=== PATIENT | female | born 1955 | race Caucasian/White ===

== ENCOUNTER 2021-11-20 08:14 | Outpatient (CLI) | payer MEDICARE, OTHER | END 2021-11-20 08:15 | disposition home or self-care (01) | LOC: CSHWCC 08:14 | PROVIDERS: ATTEND Nurse Practitioner Family | DX: S31.829D Unspecified open wound of left buttock, subsequent encounter (principal); S31.819D Unspecified open wound of right buttock, subsequent encounter | CPT/HCPCS: 97139; G0463; 99204 ==

== ENCOUNTER 2021-12-04 10:09 | Outpatient (CLI) | payer MEDICARE, OTHER | END 2021-12-04 10:10 | disposition home or self-care (01) | LOC: CSHWCC 10:09 | PROVIDERS: ATTEND Nurse Practitioner Family | DX: S31.829D Unspecified open wound of left buttock, subsequent encounter (principal); S31.819D Unspecified open wound of right buttock, subsequent encounter ==

== ENCOUNTER 2021-12-10 12:51 | Outpatient (CLI) | payer MEDICARE, OTHER | END 2021-12-10 12:52 | disposition home or self-care (01) | LOC: CSHWCC 12:51 | PROVIDERS: ATTEND Nurse Practitioner Family | DX: L59.8 Other specified disorders of the skin and subcutaneous tissue related to radiation (principal) ==

== ENCOUNTER 2022-01-07 13:56 | Outpatient (CLI) | payer MEDICARE, OTHER | END 2022-01-07 13:57 | disposition home or self-care (01) | LOC: CSHWCC 13:56 | PROVIDERS: ATTEND Nurse Practitioner Family | DX: L59.8 Other specified disorders of the skin and subcutaneous tissue related to radiation (principal) | CPT/HCPCS: G0277 ==

== ENCOUNTER 2022-01-08 12:50 | Outpatient (CLI) | payer MEDICARE, OTHER | END 2022-01-08 12:51 | disposition home or self-care (01) | LOC: CSHWCC 12:50 | PROVIDERS: ATTEND Nurse Practitioner Family | DX: L59.8 Other specified disorders of the skin and subcutaneous tissue related to radiation (principal) | CPT/HCPCS: G0277 ==

== ENCOUNTER 2022-01-09 12:56 | Outpatient (CLI) | payer MEDICARE, OTHER | END 2022-01-09 12:57 | disposition home or self-care (01) | LOC: CSHWCC 12:56 | PROVIDERS: ATTEND Nurse Practitioner Family | DX: S31.829D Unspecified open wound of left buttock, subsequent encounter (principal); S31.819D Unspecified open wound of right buttock, subsequent encounter; L59.8 Other specified disorders of the skin and subcutaneous tissue related to radiation | CPT/HCPCS: 99213; G0277; G0463 ==

== ENCOUNTER 2022-01-14 10:00 | Outpatient (CLI) | payer MEDICARE, OTHER | END 2022-01-14 10:01 | disposition home or self-care (01) | LOC: CSHWCC 10:00 | PROVIDERS: ATTEND Nurse Practitioner Family | DX: L59.8 Other specified disorders of the skin and subcutaneous tissue related to radiation (principal) | CPT/HCPCS: G0277 ==

== ENCOUNTER 2022-01-23 12:59 | Outpatient (CLI) | payer MEDICARE, OTHER | END 2022-01-23 13:00 | disposition home or self-care (01) | LOC: CSHWCC 12:59 | PROVIDERS: ATTEND Nurse Practitioner Family | DX: L59.8 Other specified disorders of the skin and subcutaneous tissue related to radiation (principal) | CPT/HCPCS: 97139; G0277 ==

== ENCOUNTER 2022-01-28 15:31 | Outpatient (CLI) | payer MEDICARE, OTHER | END 2022-01-28 15:32 | disposition home or self-care (01) | LOC: CSHWCC 15:31 | PROVIDERS: ATTEND Nurse Practitioner Family | DX: L59.8 Other specified disorders of the skin and subcutaneous tissue related to radiation (principal) | CPT/HCPCS: 97139 ×2; G0277 ×2 ==

== ENCOUNTER 2022-01-29 13:41 | Outpatient (CLI) | payer MEDICARE, OTHER | END 2022-01-29 13:42 | disposition home or self-care (01) | LOC: CSHWCC 13:41 | PROVIDERS: ATTEND Nurse Practitioner Family | DX: L59.8 Other specified disorders of the skin and subcutaneous tissue related to radiation (principal) | CPT/HCPCS: G0277 ==

== ENCOUNTER 2022-01-30 12:47 | Outpatient (CLI) | payer MEDICARE, OTHER | END 2022-01-30 12:48 | disposition home or self-care (01) | LOC: CSHWCC 12:47 | PROVIDERS: ATTEND Nurse Practitioner Family | DX: L59.8 Other specified disorders of the skin and subcutaneous tissue related to radiation (principal) | CPT/HCPCS: 97139; G0277; G0463; 99213 ==

== ENCOUNTER 2022-01-31 13:02 | Outpatient (CLI) | payer MEDICARE, OTHER | END 2022-01-31 13:03 | disposition home or self-care (01) | LOC: CSHWCC 13:02 | PROVIDERS: ATTEND Nurse Practitioner Family | DX: L59.8 Other specified disorders of the skin and subcutaneous tissue related to radiation (principal) | CPT/HCPCS: G0277 ==

== ENCOUNTER 2022-02-04 13:40 | Outpatient (CLI) | payer MEDICARE, OTHER | END 2022-02-04 13:41 | disposition home or self-care (01) | LOC: CSHWCC 13:40 | PROVIDERS: ATTEND Nurse Practitioner Family | DX: L59.8 Other specified disorders of the skin and subcutaneous tissue related to radiation (principal) | CPT/HCPCS: G0277 ==

== ENCOUNTER 2022-02-05 11:58 | Outpatient (CLI) | payer MEDICARE, OTHER | END 2022-02-05 11:59 | disposition home or self-care (01) | LOC: CSHWCC 11:58 | PROVIDERS: ATTEND Nurse Practitioner Family | DX: L59.8 Other specified disorders of the skin and subcutaneous tissue related to radiation (principal) | CPT/HCPCS: 97139; G0277 ==

== ENCOUNTER 2022-02-06 16:36 | Outpatient (CLI) | payer MEDICARE, OTHER | END 2022-02-06 16:37 | disposition home or self-care (01) | LOC: CSHWCC 16:36 | PROVIDERS: ATTEND Nurse Practitioner Family | DX: L59.8 Other specified disorders of the skin and subcutaneous tissue related to radiation (principal) | CPT/HCPCS: G0277 ==

== ENCOUNTER 2022-02-07 13:01 | Outpatient (CLI) | payer MEDICARE, OTHER | END 2022-02-07 13:02 | disposition home or self-care (01) | LOC: CSHWCC 13:01 | PROVIDERS: ATTEND Nurse Practitioner Family | DX: L59.8 Other specified disorders of the skin and subcutaneous tissue related to radiation (principal) ==

== ENCOUNTER 2022-02-08 13:09 | Outpatient (CLI) | payer MEDICARE, OTHER | END 2022-02-08 13:10 | disposition home or self-care (01) | LOC: CSHWCC 13:09 | PROVIDERS: ATTEND Nurse Practitioner Family | DX: L59.8 Other specified disorders of the skin and subcutaneous tissue related to radiation (principal) | CPT/HCPCS: 97139; G0277 ==

== ENCOUNTER 2022-02-11 11:48 | Outpatient (CLI) | payer MEDICARE, OTHER | END 2022-02-11 11:49 | disposition home or self-care (01) | LOC: CSHWCC 11:48 | PROVIDERS: ATTEND Nurse Practitioner Family | DX: L59.8 Other specified disorders of the skin and subcutaneous tissue related to radiation (principal) | CPT/HCPCS: 97139; G0277 ==

== ENCOUNTER 2022-02-12 13:00 | Outpatient (CLI) | payer MEDICARE, OTHER | END 2022-02-12 13:01 | disposition home or self-care (01) | LOC: CSHWCC 13:00 | PROVIDERS: ATTEND Nurse Practitioner Family | DX: L59.8 Other specified disorders of the skin and subcutaneous tissue related to radiation (principal) | CPT/HCPCS: 97139; G0277 ==

== ENCOUNTER 2022-02-14 12:42 | Outpatient (CLI) | payer MEDICARE, OTHER | END 2022-02-14 12:43 | disposition home or self-care (01) | LOC: CSHWCC 12:42 | PROVIDERS: ATTEND Nurse Practitioner Family | DX: L59.8 Other specified disorders of the skin and subcutaneous tissue related to radiation (principal) | CPT/HCPCS: 97139; G0277 ==

== ENCOUNTER 2022-02-15 11:15 | Outpatient (CLI) | payer MEDICARE, OTHER | END 2022-02-15 11:16 | disposition home or self-care (01) | LOC: CSHWCC 11:15 | PROVIDERS: ATTEND Nurse Practitioner Family | DX: L59.8 Other specified disorders of the skin and subcutaneous tissue related to radiation (principal) | CPT/HCPCS: 97139; G0277 ==

== ENCOUNTER 2022-02-19 10:04 | Outpatient (CLI) | payer MEDICARE, OTHER | END 2022-02-19 10:05 | disposition home or self-care (01) | LOC: CSHWCC 10:04 | PROVIDERS: ATTEND Nurse Practitioner Family | DX: L59.8 Other specified disorders of the skin and subcutaneous tissue related to radiation (principal) | CPT/HCPCS: G0277 ==

== ENCOUNTER 2022-02-20 15:16 | Outpatient (CLI) | payer MEDICARE, OTHER | END 2022-02-20 15:17 | disposition home or self-care (01) | LOC: CSHWCC 15:16 | PROVIDERS: ATTEND Nurse Practitioner Family | DX: L59.8 Other specified disorders of the skin and subcutaneous tissue related to radiation (principal) | CPT/HCPCS: 97139; G0277 ==

== ENCOUNTER 2022-02-21 08:08 | Outpatient (CLI) | payer MEDICARE, OTHER | END 2022-02-21 08:09 | disposition home or self-care (01) | LOC: CSHWCC 08:08 | PROVIDERS: ATTEND Nurse Practitioner Family | DX: S31.819D Unspecified open wound of right buttock, subsequent encounter (principal); L59.8 Other specified disorders of the skin and subcutaneous tissue related to radiation ==

== ENCOUNTER 2022-02-25 08:16 | Outpatient (CLI) | payer MEDICARE, OTHER | END 2022-02-25 08:17 | disposition home or self-care (01) | LOC: CSHWCC 08:16 | PROVIDERS: ATTEND Nurse Practitioner Family | DX: S31.819D Unspecified open wound of right buttock, subsequent encounter (principal); L59.8 Other specified disorders of the skin and subcutaneous tissue related to radiation | CPT/HCPCS: G0277 ==

== ENCOUNTER 2022-02-26 15:59 | Outpatient (CLI) | payer MEDICARE, OTHER | END 2022-02-26 16:00 | disposition home or self-care (01) | LOC: CSHWCC 15:59 | PROVIDERS: ATTEND Nurse Practitioner Family | DX: L59.8 Other specified disorders of the skin and subcutaneous tissue related to radiation (principal) | CPT/HCPCS: 97139; G0277 ==

== ENCOUNTER 2022-02-28 15:13 | Outpatient (CLI) | payer MEDICARE, OTHER | END 2022-02-28 15:14 | disposition home or self-care (01) | LOC: CSHWCC 15:13 | PROVIDERS: ATTEND Nurse Practitioner Family | DX: L59.8 Other specified disorders of the skin and subcutaneous tissue related to radiation (principal) | CPT/HCPCS: 99213; G0277; G0463 ==

== ENCOUNTER 2022-03-11 09:36 | Outpatient (CLI) | payer MEDICARE, OTHER | END 2022-03-11 09:37 | disposition home or self-care (01) | LOC: CSHWCC 09:36 | PROVIDERS: ATTEND Nurse Practitioner Family | DX: L59.8 Other specified disorders of the skin and subcutaneous tissue related to radiation (principal) | CPT/HCPCS: 97139; G0277 ==

== ENCOUNTER 2022-03-12 15:09 | Outpatient (CLI) | payer MEDICARE, OTHER | END 2022-03-12 15:10 | disposition home or self-care (01) | LOC: CSHWCC 15:09 | PROVIDERS: ATTEND Nurse Practitioner Family | DX: L59.8 Other specified disorders of the skin and subcutaneous tissue related to radiation (principal); S31.819D Unspecified open wound of right buttock, subsequent encounter | CPT/HCPCS: 97139; G0277 ==

== ENCOUNTER 2022-03-13 12:02 | Outpatient (CLI) | payer MEDICARE, OTHER | END 2022-03-13 12:03 | disposition home or self-care (01) | LOC: CSHWCC 12:02 | PROVIDERS: ATTEND Nurse Practitioner Family | DX: S31.819D Unspecified open wound of right buttock, subsequent encounter (principal); L59.8 Other specified disorders of the skin and subcutaneous tissue related to radiation | CPT/HCPCS: 97139; G0277 ==

== ENCOUNTER 2022-03-14 14:13 | Outpatient (CLI) | payer MEDICARE, OTHER | END 2022-03-14 14:14 | disposition home or self-care (01) | LOC: CSHWCC 14:13 | PROVIDERS: ATTEND Nurse Practitioner Family | DX: S31.819D Unspecified open wound of right buttock, subsequent encounter (principal); L59.8 Other specified disorders of the skin and subcutaneous tissue related to radiation | CPT/HCPCS: G0277 ==

== ENCOUNTER 2022-03-18 08:11 | Outpatient (CLI) | payer MEDICARE, OTHER | END 2022-03-18 08:12 | disposition home or self-care (01) | LOC: CSHWCC 08:11 | PROVIDERS: ATTEND Nurse Practitioner Family | DX: L59.8 Other specified disorders of the skin and subcutaneous tissue related to radiation (principal) | CPT/HCPCS: G0277 ==

== ENCOUNTER 2022-03-19 11:42 | Outpatient (CLI) | payer MEDICARE, OTHER | END 2022-03-19 11:43 | disposition home or self-care (01) | LOC: CSHWCC 11:42 | PROVIDERS: ATTEND Nurse Practitioner Family | DX: S31.819D Unspecified open wound of right buttock, subsequent encounter (principal); L59.8 Other specified disorders of the skin and subcutaneous tissue related to radiation | CPT/HCPCS: 97139; G0277 ==

== ENCOUNTER 2022-03-20 14:04 | Outpatient (CLI) | payer MEDICARE, OTHER | END 2022-03-20 14:05 | disposition home or self-care (01) | LOC: CSHWCC 14:04 | PROVIDERS: ATTEND Nurse Practitioner Family | DX: S31.819D Unspecified open wound of right buttock, subsequent encounter (principal); L59.8 Other specified disorders of the skin and subcutaneous tissue related to radiation | CPT/HCPCS: 97139; G0277 ==

== ENCOUNTER 2022-03-22 10:17 | Outpatient (CLI) | payer MEDICARE, OTHER | END 2022-03-22 10:18 | disposition home or self-care (01) | LOC: CSHWCC 10:17 | PROVIDERS: ATTEND Nurse Practitioner Family | DX: L59.8 Other specified disorders of the skin and subcutaneous tissue related to radiation (principal); S31.819D Unspecified open wound of right buttock, subsequent encounter | CPT/HCPCS: 97139; G0277 ==

== ENCOUNTER 2022-03-25 11:00 | Outpatient (CLI) | payer MEDICARE, OTHER | END 2022-03-25 11:01 | disposition home or self-care (01) | LOC: CSHWCC 11:00 | PROVIDERS: ATTEND Nurse Practitioner Family | DX: S31.819D Unspecified open wound of right buttock, subsequent encounter (principal); L59.8 Other specified disorders of the skin and subcutaneous tissue related to radiation | CPT/HCPCS: G0277 ==

== ENCOUNTER 2022-03-26 10:47 | Outpatient (CLI) | payer MEDICARE, OTHER | END 2022-03-26 10:48 | disposition home or self-care (01) | LOC: CSHWCC 10:47 | PROVIDERS: ATTEND Nurse Practitioner Family | DX: S31.819D Unspecified open wound of right buttock, subsequent encounter (principal); L59.8 Other specified disorders of the skin and subcutaneous tissue related to radiation | CPT/HCPCS: 97139; G0277 ==

== ENCOUNTER 2022-03-27 12:49 | Outpatient (CLI) | payer MEDICARE, OTHER | END 2022-03-27 12:50 | disposition home or self-care (01) | LOC: CSHWCC 12:49 | PROVIDERS: ATTEND Nurse Practitioner Family | DX: S31.819D Unspecified open wound of right buttock, subsequent encounter (principal); L59.8 Other specified disorders of the skin and subcutaneous tissue related to radiation ==

== ENCOUNTER 2022-03-28 15:05 | Outpatient (CLI) | payer MEDICARE, OTHER | END 2022-03-28 15:06 | disposition home or self-care (01) | LOC: CSHWCC 15:05 | PROVIDERS: ATTEND Nurse Practitioner Family | DX: S31.819D Unspecified open wound of right buttock, subsequent encounter (principal); L59.8 Other specified disorders of the skin and subcutaneous tissue related to radiation ==

== ENCOUNTER 2022-03-29 11:12 | Outpatient (CLI) | payer MEDICARE, OTHER | END 2022-03-29 11:13 | disposition home or self-care (01) | LOC: CSHWCC 11:12 | PROVIDERS: ATTEND Nurse Practitioner Family | DX: S31.819D Unspecified open wound of right buttock, subsequent encounter (principal); L59.8 Other specified disorders of the skin and subcutaneous tissue related to radiation | CPT/HCPCS: G0277 ==

== ENCOUNTER 2022-04-02 13:06 | Outpatient (CLI) | payer MEDICARE, OTHER | END 2022-04-02 13:07 | disposition home or self-care (01) | LOC: CSHWCC 13:06 | PROVIDERS: ATTEND Nurse Practitioner Family | DX: S31.829D Unspecified open wound of left buttock, subsequent encounter (principal); S31.819D Unspecified open wound of right buttock, subsequent encounter; L59.8 Other specified disorders of the skin and subcutaneous tissue related to radiation | CPT/HCPCS: G0277 ==

== ENCOUNTER 2022-04-03 11:05 | Outpatient (CLI) | payer MEDICARE, OTHER | END 2022-04-03 11:06 | disposition home or self-care (01) | LOC: CSHWCC 11:05 | PROVIDERS: ATTEND Nurse Practitioner Family | DX: S31.819D Unspecified open wound of right buttock, subsequent encounter (principal); L59.8 Other specified disorders of the skin and subcutaneous tissue related to radiation | CPT/HCPCS: G0277 ==

== ENCOUNTER 2022-04-04 15:16 | Outpatient (CLI) | payer MEDICARE, OTHER | END 2022-04-04 15:17 | disposition home or self-care (01) | LOC: CSHWCC 15:16 | PROVIDERS: ATTEND Nurse Practitioner Family | DX: S31.819D Unspecified open wound of right buttock, subsequent encounter (principal); L59.8 Other specified disorders of the skin and subcutaneous tissue related to radiation | CPT/HCPCS: 97139; G0277 ==

== ENCOUNTER 2022-04-09 12:55 | Outpatient (CLI) | payer MEDICARE, OTHER | END 2022-04-09 12:56 | disposition home or self-care (01) | LOC: CSHWCC 12:55 | PROVIDERS: ATTEND Nurse Practitioner Family | DX: L59.8 Other specified disorders of the skin and subcutaneous tissue related to radiation (principal) ==

== ENCOUNTER 2022-04-22 14:06 | Outpatient (CLI) | payer MEDICARE, OTHER | END 2022-04-22 14:07 | disposition home or self-care (01) | LOC: CSHWCC 14:06 | PROVIDERS: ATTEND Nurse Practitioner Family | DX: L59.8 Other specified disorders of the skin and subcutaneous tissue related to radiation (principal) ==

== ENCOUNTER 2022-04-23 14:45 | Outpatient (CLI) | payer MEDICARE, OTHER | END 2022-04-23 14:46 | disposition home or self-care (01) | LOC: CSHWCC 14:45 | PROVIDERS: ATTEND Nurse Practitioner Family | DX: S31.819D Unspecified open wound of right buttock, subsequent encounter (principal); L59.8 Other specified disorders of the skin and subcutaneous tissue related to radiation | CPT/HCPCS: 97139; G0277 ==

== ENCOUNTER 2022-04-24 11:18 | Outpatient (CLI) | payer MEDICARE, OTHER | END 2022-04-24 11:19 | disposition home or self-care (01) | LOC: CSHWCC 11:18 | PROVIDERS: ATTEND Nurse Practitioner Family | DX: S31.819D Unspecified open wound of right buttock, subsequent encounter (principal); L59.8 Other specified disorders of the skin and subcutaneous tissue related to radiation ==

== ENCOUNTER 2022-04-25 10:48 | Outpatient (CLI) | payer MEDICARE, OTHER | END 2022-04-25 10:49 | disposition home or self-care (01) | LOC: CSHWCC 10:48 | PROVIDERS: ATTEND Nurse Practitioner Family | DX: S31.829D Unspecified open wound of left buttock, subsequent encounter (principal) | CPT/HCPCS: 97139; G0277; G0463; 99212 ==

== ENCOUNTER 2022-05-01 11:10 | Outpatient (CLI) | payer MEDICARE, OTHER | END 2022-05-01 11:11 | disposition home or self-care (01) | LOC: CSHWCC 11:10 | PROVIDERS: ATTEND Nurse Practitioner Family | DX: S31.819D Unspecified open wound of right buttock, subsequent encounter (principal); L59.8 Other specified disorders of the skin and subcutaneous tissue related to radiation | CPT/HCPCS: 97139; G0277 ==

== ENCOUNTER 2022-05-02 13:59 | Outpatient (CLI) | payer MEDICARE, OTHER | END 2022-05-02 14:00 | disposition home or self-care (01) | LOC: CSHWCC 13:59 | PROVIDERS: ATTEND Nurse Practitioner Family | DX: S31.819D Unspecified open wound of right buttock, subsequent encounter (principal); L59.8 Other specified disorders of the skin and subcutaneous tissue related to radiation | CPT/HCPCS: 97139; G0277 ==

== ENCOUNTER 2022-05-03 10:37 | Outpatient (CLI) | payer MEDICARE, OTHER | END 2022-05-03 10:38 | disposition home or self-care (01) | LOC: CSHWCC 10:37 | PROVIDERS: ATTEND Nurse Practitioner Family | DX: S31.829D Unspecified open wound of left buttock, subsequent encounter (principal) | CPT/HCPCS: G0277 ==

== ENCOUNTER 2022-05-16 13:38 | Outpatient (CLI) | payer MEDICARE, OTHER | END 2022-05-16 13:39 | disposition home or self-care (01) | LOC: CSHWCC 13:38 | PROVIDERS: ATTEND Nurse Practitioner Family | DX: S31.819D Unspecified open wound of right buttock, subsequent encounter (principal); L59.8 Other specified disorders of the skin and subcutaneous tissue related to radiation ==

== ENCOUNTER 2023-02-17 13:31 | Outpatient (CLI) | payer MEDICARE, OTHER | END 2023-02-17 13:32 | disposition home or self-care (01) | LOC: CSHWCC 13:31 | PROVIDERS: ATTEND Nurse Practitioner Family | DX: S31.829D Unspecified open wound of left buttock, subsequent encounter (principal) | CPT/HCPCS: 97139; G0463; 99212 ==

== ENCOUNTER 2023-03-19 11:08 | Outpatient (CLI) | payer MEDICARE, OTHER | END 2023-03-19 11:09 | disposition home or self-care (01) | LOC: CSHWCC 11:08 | PROVIDERS: ATTEND Nurse Practitioner Family | DX: T66.XXXD Radiation sickness, unspecified, subsequent encounter (principal) | CPT/HCPCS: G0277 ==

== ENCOUNTER 2023-03-20 11:51 | Outpatient (CLI) | payer MEDICARE, OTHER | END 2023-03-20 11:52 | disposition home or self-care (01) | LOC: CSHWCC 11:51 | PROVIDERS: ATTEND Nurse Practitioner Family | DX: L59.8 Other specified disorders of the skin and subcutaneous tissue related to radiation (principal) | CPT/HCPCS: G0277 ==

== ENCOUNTER 2023-03-21 12:56 | Outpatient (CLI) | payer MEDICARE, OTHER | END 2023-03-21 12:57 | disposition home or self-care (01) | LOC: CSHWCC 12:56 | PROVIDERS: ATTEND Nurse Practitioner Family | DX: L59.8 Other specified disorders of the skin and subcutaneous tissue related to radiation (principal) | CPT/HCPCS: G0277 ==

== ENCOUNTER 2023-04-09 11:30 | Outpatient (CLI) | payer MEDICARE, OTHER | END 2023-04-09 11:31 | disposition home or self-care (01) | LOC: CSHWCC 11:30 | PROVIDERS: ATTEND Nurse Practitioner Family | DX: L59.8 Other specified disorders of the skin and subcutaneous tissue related to radiation (principal) | CPT/HCPCS: 97139; G0277 ==

== ENCOUNTER 2023-04-10 11:25 | Outpatient (CLI) | payer MEDICARE, OTHER | END 2023-04-10 11:26 | disposition home or self-care (01) | LOC: CSHWCC 11:25 | PROVIDERS: ATTEND Nurse Practitioner Family | DX: L59.8 Other specified disorders of the skin and subcutaneous tissue related to radiation (principal) | CPT/HCPCS: 97139; G0277 ==

== ENCOUNTER 2023-04-14 11:08 | Outpatient (CLI) | payer MEDICARE, OTHER | END 2023-04-14 11:09 | disposition home or self-care (01) | LOC: CSHWCC 11:08 | PROVIDERS: ATTEND Nurse Practitioner Family | DX: L59.8 Other specified disorders of the skin and subcutaneous tissue related to radiation (principal) | CPT/HCPCS: 97139; G0277 ==

== ENCOUNTER 2023-04-23 09:31 | Outpatient (CLI) | payer MEDICARE, OTHER | END 2023-04-23 09:32 | disposition home or self-care (01) | LOC: CSHWCC 09:31 | PROVIDERS: ATTEND Nurse Practitioner Family | DX: L59.8 Other specified disorders of the skin and subcutaneous tissue related to radiation (principal) | CPT/HCPCS: 97139; G0277 ==

== ENCOUNTER 2023-04-24 08:39 | Outpatient (CLI) | payer MEDICARE, OTHER | END 2023-04-24 08:40 | disposition home or self-care (01) | LOC: CSHWCC 08:39 | PROVIDERS: ATTEND Nurse Practitioner Family | DX: L59.8 Other specified disorders of the skin and subcutaneous tissue related to radiation (principal) | CPT/HCPCS: 97139; G0277 ==

== ENCOUNTER 2023-04-25 08:41 | Outpatient (CLI) | payer MEDICARE, OTHER | END 2023-04-25 08:42 | disposition home or self-care (01) | LOC: CSHWCC 08:41 | PROVIDERS: ATTEND Nurse Practitioner Family | DX: T66.XXXA Radiation sickness, unspecified, initial encounter (principal) | CPT/HCPCS: 97139; G0277 ==

== ENCOUNTER 2023-04-28 09:36 | Outpatient (CLI) | payer MEDICARE, OTHER | END 2023-04-28 09:37 | disposition home or self-care (01) | LOC: CSHWCC 09:36 | PROVIDERS: ATTEND Nurse Practitioner Family | DX: L59.8 Other specified disorders of the skin and subcutaneous tissue related to radiation (principal) | CPT/HCPCS: 97139; G0277 ==

== ENCOUNTER 2023-04-29 12:48 | Outpatient (CLI) | payer MEDICARE, OTHER | END 2023-04-29 12:49 | disposition home or self-care (01) | LOC: CSHWCC 12:48 | PROVIDERS: ATTEND Nurse Practitioner Family | DX: L59.8 Other specified disorders of the skin and subcutaneous tissue related to radiation (principal) | CPT/HCPCS: 97139; G0277 ==

== ENCOUNTER 2023-04-30 13:43 | Outpatient (CLI) | payer MEDICARE, OTHER | END 2023-04-30 13:44 | disposition home or self-care (01) | LOC: CSHWCC 13:43 | PROVIDERS: ATTEND Nurse Practitioner Family | DX: L59.8 Other specified disorders of the skin and subcutaneous tissue related to radiation (principal) | CPT/HCPCS: 97139; G0277 ==

== ENCOUNTER 2023-05-01 15:24 | Outpatient (CLI) | payer MEDICARE, OTHER | END 2023-05-01 15:25 | disposition home or self-care (01) | LOC: CSHWCC 15:24 | PROVIDERS: ATTEND Nurse Practitioner Family | DX: L59.8 Other specified disorders of the skin and subcutaneous tissue related to radiation (principal) | CPT/HCPCS: 97139; G0463; 99213 ==

== ENCOUNTER 2023-05-05 12:27 | Outpatient (CLI) | payer MEDICARE, OTHER | END 2023-05-05 12:28 | disposition home or self-care (01) | LOC: CSHWCC 12:27 | PROVIDERS: ATTEND Nurse Practitioner Family | DX: L59.8 Other specified disorders of the skin and subcutaneous tissue related to radiation (principal) | CPT/HCPCS: 97139; G0277 ==

== ENCOUNTER 2023-05-06 11:10 | Outpatient (CLI) | payer MEDICARE, OTHER | END 2023-05-06 11:11 | disposition home or self-care (01) | LOC: CSHWCC 11:10 | PROVIDERS: ATTEND Nurse Practitioner Family | DX: T66.XXXD Radiation sickness, unspecified, subsequent encounter (principal) | CPT/HCPCS: 97139; G0277 ==

== ENCOUNTER 2023-05-07 11:23 | Outpatient (CLI) | payer MEDICARE, OTHER | END 2023-05-07 11:24 | disposition home or self-care (01) | LOC: CSHWCC 11:23 | PROVIDERS: ATTEND Nurse Practitioner Family | DX: T66.XXXD Radiation sickness, unspecified, subsequent encounter (principal) | CPT/HCPCS: 97139; G0277 ==

== ENCOUNTER 2023-05-08 11:18 | Outpatient (CLI) | payer MEDICARE, OTHER | END 2023-05-08 11:19 | disposition home or self-care (01) | LOC: CSHWCC 11:18 | PROVIDERS: ATTEND Nurse Practitioner Family | DX: L59.8 Other specified disorders of the skin and subcutaneous tissue related to radiation (principal) | CPT/HCPCS: 97139; G0277 ==

== ENCOUNTER 2023-05-13 08:35 | Outpatient (CLI) | payer MEDICARE, OTHER | END 2023-05-13 08:36 | disposition home or self-care (01) | LOC: CSHWCC 08:35 | PROVIDERS: ATTEND Nurse Practitioner Family | DX: T66.XXXD Radiation sickness, unspecified, subsequent encounter (principal) | CPT/HCPCS: 97139; G0277 ==

== ENCOUNTER 2023-05-14 13:05 | Outpatient (CLI) | payer MEDICARE, OTHER | END 2023-05-14 13:06 | disposition home or self-care (01) | LOC: CSHWCC 13:05 | PROVIDERS: ATTEND Nurse Practitioner Family | DX: L59.8 Other specified disorders of the skin and subcutaneous tissue related to radiation (principal) | CPT/HCPCS: 97139; G0277 ==

== ENCOUNTER 2023-05-15 13:20 | Outpatient (CLI) | payer MEDICARE, OTHER | END 2023-05-15 13:21 | disposition home or self-care (01) | LOC: CSHWCC 13:20 | PROVIDERS: ATTEND Nurse Practitioner Family | DX: T66.XXXD Radiation sickness, unspecified, subsequent encounter (principal) | CPT/HCPCS: 97139; G0277 ==

== ENCOUNTER 2023-05-19 08:25 | Outpatient (CLI) | payer MEDICARE, OTHER | END 2023-05-19 08:26 | disposition home or self-care (01) | LOC: CSHWCC 08:25 | PROVIDERS: ATTEND Nurse Practitioner Family | DX: T66.XXXD Radiation sickness, unspecified, subsequent encounter (principal) | CPT/HCPCS: 97139; G0277 ==

== ENCOUNTER 2023-05-21 08:22 | Outpatient (CLI) | payer MEDICARE, OTHER | END 2023-05-21 08:23 | disposition home or self-care (01) | LOC: CSHWCC 08:22 | PROVIDERS: ATTEND Nurse Practitioner Family | DX: L59.8 Other specified disorders of the skin and subcutaneous tissue related to radiation (principal) | CPT/HCPCS: 97139; G0277 ==

== ENCOUNTER 2023-05-22 08:13 | Outpatient (CLI) | payer MEDICARE, OTHER | END 2023-05-22 08:14 | disposition home or self-care (01) | LOC: CSHWCC 08:13 | PROVIDERS: ATTEND Nurse Practitioner Family | DX: T66.XXXD Radiation sickness, unspecified, subsequent encounter (principal) | CPT/HCPCS: 97139; G0277 ==

== ENCOUNTER 2023-05-27 13:15 | Outpatient (CLI) | payer MEDICARE, OTHER | END 2023-05-27 13:16 | disposition home or self-care (01) | LOC: CSHWCC 13:15 | PROVIDERS: ATTEND Nurse Practitioner Family | DX: L59.8 Other specified disorders of the skin and subcutaneous tissue related to radiation (principal) | CPT/HCPCS: 97139; G0277 ==

== ENCOUNTER 2023-05-29 11:08 | Outpatient (CLI) | payer MEDICARE, OTHER | END 2023-05-29 11:09 | disposition home or self-care (01) | LOC: CSHWCC 11:08 | PROVIDERS: ATTEND Nurse Practitioner Family | DX: T66.XXXA Radiation sickness, unspecified, initial encounter (principal) | CPT/HCPCS: 97139; G0277 ==

== ENCOUNTER 2023-05-30 08:39 | Outpatient (CLI) | payer MEDICARE, OTHER | END 2023-05-30 08:40 | disposition home or self-care (01) | LOC: CSHWCC 08:39 | PROVIDERS: ATTEND Nurse Practitioner Family | DX: L59.8 Other specified disorders of the skin and subcutaneous tissue related to radiation (principal) | CPT/HCPCS: 97139; G0277 ==

== ENCOUNTER 2023-06-02 08:48 | Outpatient (CLI) | payer MEDICARE, OTHER | END 2023-06-02 08:49 | disposition home or self-care (01) | LOC: CSHWCC 08:48 | PROVIDERS: ATTEND Nurse Practitioner Family | DX: T66.XXXA Radiation sickness, unspecified, initial encounter (principal) | CPT/HCPCS: 97139; G0277 ==

== ENCOUNTER 2023-06-04 09:42 | Outpatient (CLI) | payer MEDICARE, OTHER | END 2023-06-04 09:43 | disposition home or self-care (01) | LOC: CSHWCC 09:42 | PROVIDERS: ATTEND Nurse Practitioner Family | DX: T66.XXXA Radiation sickness, unspecified, initial encounter (principal) | CPT/HCPCS: 97139; G0277 ==

== ENCOUNTER 2023-06-05 08:41 | Outpatient (CLI) | payer MEDICARE, OTHER | END 2023-06-05 08:42 | disposition home or self-care (01) | LOC: CSHWCC 08:41 | PROVIDERS: ATTEND Nurse Practitioner Family | DX: L59.8 Other specified disorders of the skin and subcutaneous tissue related to radiation (principal) | CPT/HCPCS: 97139; G0277 ==

== ENCOUNTER 2023-06-10 09:38 | Outpatient (CLI) | payer MEDICARE, OTHER | END 2023-06-10 09:39 | disposition home or self-care (01) | LOC: CSHWCC 09:38 | PROVIDERS: ATTEND Nurse Practitioner Family | DX: L59.8 Other specified disorders of the skin and subcutaneous tissue related to radiation (principal) | CPT/HCPCS: 97139; G0277 ==

== ENCOUNTER 2023-06-11 08:15 | Outpatient (CLI) | payer MEDICARE, OTHER | END 2023-06-11 08:16 | disposition home or self-care (01) | LOC: CSHWCC 08:15 | PROVIDERS: ATTEND Nurse Practitioner Family | DX: T66.XXXA Radiation sickness, unspecified, initial encounter (principal) | CPT/HCPCS: 97139; G0277 ==

== ENCOUNTER 2023-06-13 08:22 | Outpatient (CLI) | payer MEDICARE, OTHER | END 2023-06-13 08:23 | disposition home or self-care (01) | LOC: CSHWCC 08:22 | PROVIDERS: ATTEND Nurse Practitioner Family | DX: T66.XXXA Radiation sickness, unspecified, initial encounter (principal) | CPT/HCPCS: 97139; G0277 ==

== ENCOUNTER 2024-04-30 08:03 | Outpatient (CLI) | payer MEDICARE, OTHER | END 2024-04-30 08:04 | disposition home or self-care (01) | LOC: CSHWCC 08:03 | PROVIDERS: ATTEND Nurse Practitioner Family | DX: L59.8 Other specified disorders of the skin and subcutaneous tissue related to radiation (principal) | CPT/HCPCS: 99214; G0463 ==

== ENCOUNTER 2024-05-27 08:43 | Outpatient (CLI) | payer MEDICARE, OTHER | END 2024-05-27 08:44 | disposition home or self-care (01) | LOC: CSHWCC 08:43 | PROVIDERS: ATTEND Nurse Practitioner Family | DX: S31.40XD Unspecified open wound of vagina and vulva, subsequent encounter (principal); L59.8 Other specified disorders of the skin and subcutaneous tissue related to radiation | CPT/HCPCS: G0277 ==

== ENCOUNTER 2024-05-28 08:03 | Outpatient (CLI) | payer MEDICARE, OTHER | END 2024-05-28 08:04 | disposition home or self-care (01) | LOC: CSHWCC 08:03 | PROVIDERS: ATTEND Nurse Practitioner Family | DX: S31.40XD Unspecified open wound of vagina and vulva, subsequent encounter (principal); L59.8 Other specified disorders of the skin and subcutaneous tissue related to radiation | CPT/HCPCS: G0277 ==

== ENCOUNTER 2024-06-22 09:35 | Outpatient (CLI) | payer MEDICARE, OTHER | END 2024-06-22 09:36 | disposition home or self-care (01) | LOC: CSHWCC 09:35 | PROVIDERS: ATTEND Nurse Practitioner Family | DX: S31.40XD Unspecified open wound of vagina and vulva, subsequent encounter (principal); L59.8 Other specified disorders of the skin and subcutaneous tissue related to radiation | CPT/HCPCS: G0277 ==

== ENCOUNTER 2024-06-23 10:15 | Outpatient (CLI) | payer MEDICARE, OTHER | END 2024-06-23 10:16 | disposition home or self-care (01) | LOC: CSHWCC 10:15 | PROVIDERS: ATTEND Nurse Practitioner Family | DX: S31.40XD Unspecified open wound of vagina and vulva, subsequent encounter (principal); L59.8 Other specified disorders of the skin and subcutaneous tissue related to radiation | CPT/HCPCS: G0277 ==

== ENCOUNTER 2024-06-24 10:14 | Outpatient (CLI) | payer MEDICARE, OTHER | END 2024-06-24 10:15 | disposition home or self-care (01) | LOC: CSHWCC 10:14 | PROVIDERS: ATTEND Nurse Practitioner Family | DX: S31.40XD Unspecified open wound of vagina and vulva, subsequent encounter (principal); L59.8 Other specified disorders of the skin and subcutaneous tissue related to radiation | CPT/HCPCS: G0277 ==

== ENCOUNTER 2024-06-25 09:54 | Outpatient (CLI) | payer MEDICARE, OTHER | END 2024-06-25 09:55 | disposition home or self-care (01) | LOC: CSHWCC 09:54 | PROVIDERS: ATTEND Nurse Practitioner Family | DX: S31.40XD Unspecified open wound of vagina and vulva, subsequent encounter (principal); L59.8 Other specified disorders of the skin and subcutaneous tissue related to radiation | CPT/HCPCS: G0277 ==

== ENCOUNTER 2024-06-29 08:16 | Outpatient (CLI) | payer MEDICARE, OTHER | END 2024-06-29 08:17 | disposition home or self-care (01) | LOC: CSHWCC 08:16 | PROVIDERS: ATTEND Nurse Practitioner Family | DX: S31.40XD Unspecified open wound of vagina and vulva, subsequent encounter (principal); L59.8 Other specified disorders of the skin and subcutaneous tissue related to radiation | CPT/HCPCS: G0277 ==

== ENCOUNTER 2024-06-30 09:06 | Outpatient (CLI) | payer MEDICARE, OTHER | END 2024-06-30 09:07 | disposition home or self-care (01) | LOC: CSHWCC 09:06 | PROVIDERS: ATTEND Nurse Practitioner Family | DX: S31.40XD Unspecified open wound of vagina and vulva, subsequent encounter (principal); L59.8 Other specified disorders of the skin and subcutaneous tissue related to radiation | CPT/HCPCS: G0277 ==

== ENCOUNTER 2024-07-01 10:18 | Outpatient (CLI) | payer MEDICARE, OTHER | END 2024-07-01 10:19 | disposition home or self-care (01) | LOC: CSHWCC 10:18 | PROVIDERS: ATTEND Nurse Practitioner Family | DX: S31.40XD Unspecified open wound of vagina and vulva, subsequent encounter (principal); L59.8 Other specified disorders of the skin and subcutaneous tissue related to radiation | CPT/HCPCS: G0277 ==

== ENCOUNTER 2024-07-02 14:07 | Outpatient (CLI) | payer MEDICARE, OTHER | END 2024-07-02 14:08 | disposition home or self-care (01) | LOC: CSHWCC 14:07 | PROVIDERS: ATTEND Nurse Practitioner Family | DX: S31.40XD Unspecified open wound of vagina and vulva, subsequent encounter (principal); L59.8 Other specified disorders of the skin and subcutaneous tissue related to radiation | CPT/HCPCS: 99212; G0277; G0463 ==

== ENCOUNTER 2024-07-06 10:41 | Outpatient (CLI) | payer MEDICARE, OTHER | END 2024-07-06 10:42 | disposition home or self-care (01) | LOC: CSHWCC 10:41 | PROVIDERS: ATTEND Nurse Practitioner Family | DX: S31.40XD Unspecified open wound of vagina and vulva, subsequent encounter (principal); L59.8 Other specified disorders of the skin and subcutaneous tissue related to radiation | CPT/HCPCS: G0277 ==

== ENCOUNTER 2024-07-07 11:05 | Outpatient (CLI) | payer MEDICARE, OTHER | END 2024-07-07 11:06 | disposition home or self-care (01) | LOC: CSHWCC 11:05 | PROVIDERS: ATTEND Nurse Practitioner Family | DX: S31.40XD Unspecified open wound of vagina and vulva, subsequent encounter (principal); L59.8 Other specified disorders of the skin and subcutaneous tissue related to radiation | CPT/HCPCS: G0277 ==

== ENCOUNTER 2024-07-08 08:50 | Outpatient (CLI) | payer MEDICARE, OTHER | END 2024-07-08 08:51 | disposition home or self-care (01) | LOC: CSHWCC 08:50 | PROVIDERS: ATTEND Nurse Practitioner Family | DX: S31.40XD Unspecified open wound of vagina and vulva, subsequent encounter (principal); L59.8 Other specified disorders of the skin and subcutaneous tissue related to radiation | CPT/HCPCS: G0277 ==

== ENCOUNTER 2024-07-12 09:24 | Outpatient (CLI) | payer MEDICARE, OTHER | END 2024-07-12 09:25 | disposition home or self-care (01) | LOC: CSHWCC 09:24 | PROVIDERS: ATTEND Nurse Practitioner Family | DX: S31.40XD Unspecified open wound of vagina and vulva, subsequent encounter (principal); L59.8 Other specified disorders of the skin and subcutaneous tissue related to radiation | CPT/HCPCS: G0277 ==

== ENCOUNTER 2024-07-13 10:10 | Outpatient (CLI) | payer MEDICARE, OTHER | END 2024-07-13 10:11 | disposition home or self-care (01) | LOC: CSHWCC 10:10 | PROVIDERS: ATTEND Nurse Practitioner Family | DX: S31.40XD Unspecified open wound of vagina and vulva, subsequent encounter (principal); L59.8 Other specified disorders of the skin and subcutaneous tissue related to radiation | CPT/HCPCS: G0277 ==

== ENCOUNTER 2024-07-19 10:35 | Outpatient (CLI) | payer MEDICARE, OTHER | END 2024-07-19 10:36 | disposition home or self-care (01) | LOC: CSHWCC 10:35 | PROVIDERS: ATTEND Nurse Practitioner Family | DX: S31.40XD Unspecified open wound of vagina and vulva, subsequent encounter (principal); L59.8 Other specified disorders of the skin and subcutaneous tissue related to radiation | CPT/HCPCS: G0277 ==

== ENCOUNTER 2024-07-20 08:47 | Outpatient (CLI) | payer MEDICARE, OTHER | END 2024-07-20 08:48 | disposition home or self-care (01) | LOC: CSHWCC 08:47 | PROVIDERS: ATTEND Nurse Practitioner Family | DX: S31.40XD Unspecified open wound of vagina and vulva, subsequent encounter (principal); L59.8 Other specified disorders of the skin and subcutaneous tissue related to radiation | CPT/HCPCS: G0277 ==

== ENCOUNTER 2024-07-21 08:55 | Outpatient (CLI) | payer MEDICARE, OTHER | END 2024-07-21 08:56 | disposition home or self-care (01) | LOC: CSHWCC 08:55 | PROVIDERS: ATTEND Nurse Practitioner Family | DX: S31.40XD Unspecified open wound of vagina and vulva, subsequent encounter (principal); L59.8 Other specified disorders of the skin and subcutaneous tissue related to radiation | CPT/HCPCS: G0277 ==

== ENCOUNTER 2024-07-28 08:18 | Outpatient (CLI) | payer MEDICARE, OTHER | END 2024-07-28 08:19 | disposition home or self-care (01) | LOC: CSHWCC 08:18 | PROVIDERS: ATTEND Nurse Practitioner Family | DX: S31.40XD Unspecified open wound of vagina and vulva, subsequent encounter (principal); L59.8 Other specified disorders of the skin and subcutaneous tissue related to radiation | CPT/HCPCS: G0277 ==

== ENCOUNTER 2024-07-29 08:35 | Outpatient (CLI) | payer MEDICARE, OTHER | END 2024-07-29 08:36 | disposition home or self-care (01) | LOC: CSHWCC 08:35 | PROVIDERS: ATTEND Nurse Practitioner Family | DX: S31.40XD Unspecified open wound of vagina and vulva, subsequent encounter (principal); L59.8 Other specified disorders of the skin and subcutaneous tissue related to radiation | CPT/HCPCS: G0277 ==

== ENCOUNTER 2024-08-02 10:42 | Outpatient (CLI) | payer MEDICARE, OTHER | END 2024-08-02 10:43 | disposition home or self-care (01) | LOC: CSHWCC 10:42 | PROVIDERS: ATTEND Nurse Practitioner Family | DX: S31.40XD Unspecified open wound of vagina and vulva, subsequent encounter (principal); L59.8 Other specified disorders of the skin and subcutaneous tissue related to radiation | CPT/HCPCS: G0277 ==

== ENCOUNTER 2024-08-03 08:35 | Outpatient (CLI) | payer MEDICARE, OTHER | END 2024-08-03 08:36 | disposition home or self-care (01) | LOC: CSHWCC 08:35 | PROVIDERS: ATTEND Nurse Practitioner Family | DX: S31.40XD Unspecified open wound of vagina and vulva, subsequent encounter (principal); L59.8 Other specified disorders of the skin and subcutaneous tissue related to radiation | CPT/HCPCS: G0277 ==

== ENCOUNTER 2024-08-04 09:42 | Outpatient (CLI) | payer MEDICARE, OTHER | END 2024-08-04 09:43 | disposition home or self-care (01) | LOC: CSHWCC 09:42 | PROVIDERS: ATTEND Nurse Practitioner Family | DX: S31.40XD Unspecified open wound of vagina and vulva, subsequent encounter (principal); L59.8 Other specified disorders of the skin and subcutaneous tissue related to radiation | CPT/HCPCS: G0277 ==

== ENCOUNTER 2024-08-05 11:02 | Outpatient (CLI) | payer MEDICARE, OTHER | END 2024-08-05 11:03 | disposition home or self-care (01) | LOC: CSHWCC 11:02 | PROVIDERS: ATTEND Nurse Practitioner Family | DX: S31.40XD Unspecified open wound of vagina and vulva, subsequent encounter (principal); L59.8 Other specified disorders of the skin and subcutaneous tissue related to radiation | CPT/HCPCS: G0277 ==

== ENCOUNTER 2024-08-09 10:01 | Outpatient (CLI) | payer MEDICARE, OTHER | END 2024-08-09 10:02 | disposition home or self-care (01) | LOC: CSHWCC 10:01 | PROVIDERS: ATTEND Nurse Practitioner Family | DX: S31.40XD Unspecified open wound of vagina and vulva, subsequent encounter (principal); L59.8 Other specified disorders of the skin and subcutaneous tissue related to radiation | CPT/HCPCS: G0277 ==

== ENCOUNTER 2024-08-10 08:58 | Outpatient (CLI) | payer MEDICARE, OTHER | END 2024-08-10 08:59 | disposition home or self-care (01) | LOC: CSHWCC 08:58 | PROVIDERS: ATTEND Nurse Practitioner Family | DX: S31.40XD Unspecified open wound of vagina and vulva, subsequent encounter (principal); L59.8 Other specified disorders of the skin and subcutaneous tissue related to radiation | CPT/HCPCS: G0277 ==

== ENCOUNTER 2024-08-11 09:03 | Outpatient (CLI) | payer MEDICARE, OTHER | END 2024-08-11 09:04 | disposition home or self-care (01) | LOC: CSHWCC 09:03 | PROVIDERS: ATTEND Nurse Practitioner Family | DX: S31.40XD Unspecified open wound of vagina and vulva, subsequent encounter (principal); L59.8 Other specified disorders of the skin and subcutaneous tissue related to radiation | CPT/HCPCS: G0277 ==

== ENCOUNTER 2024-08-12 08:46 | Outpatient (CLI) | payer MEDICARE, OTHER | END 2024-08-12 08:47 | disposition home or self-care (01) | LOC: CSHWCC 08:46 | PROVIDERS: ATTEND Nurse Practitioner Family | DX: S31.40XD Unspecified open wound of vagina and vulva, subsequent encounter (principal); L59.8 Other specified disorders of the skin and subcutaneous tissue related to radiation | CPT/HCPCS: G0277 ==

== ENCOUNTER 2025-01-27 06:51 | Day surgery (SDC) | payer MEDICARE, OTHER ==
[2025-01-26 13:05] VITALS: BMI 26.6
[2025-01-27] MEDS ORDERED: Ketorolac Tromethamine 30 MG (1 mL) VIAL ONE (07:08)
[2025-01-27] MEDS ORDERED: Acetaminophen 500 MG TAB ONE (07:09)
[2025-01-27] MEDS ORDERED: CEFAZOLIN 2 GM VIAL ONE (08:43)
[2025-01-27] MEDS ORDERED: Bupivacaine/Epinephrine 0.25% 30 ML VIAL ONE (08:44)
[2025-01-27] MEDS ORDERED: PROPOFOL 20 ML ONE (09:07)
[2025-01-27] MEDS ORDERED: Lidocaine 2% PF 5 ML VIAL ONE (09:07)
[2025-01-27] MEDS ORDERED: Fentanyl 100 MCG/2 ML VIAL ONE (09:21)
[2025-01-27] MEDS ORDERED: ePHEDrine Sulfate 50 MG/10 ML VIAL ONE (09:27)
[2025-01-27] MEDS ORDERED: Dexamethasone 4 mg/ml Vial ONE (09:29)
[2025-01-27] MEDS ORDERED: Ondansetron PF 4 MG/2 ML Vial ONE (09:29)
== END 2025-01-27 12:30 | disposition home or self-care (01) ==
LOC: CSHSDC 06:51
PROVIDERS: ATTEND Specialist
PROC: 0JH60WZ Insertion of Totally Implantable Vascular Access Device into Chest Subcutaneous Tissue and Fascia, Open Approach (ICD-10-PCS; principal; 2025-01-27)
DX: C51.9 Malignant neoplasm of vulva, unspecified (principal); I10 Essential (primary) hypertension; E78.5 Hyperlipidemia, unspecified; Z96.22 Myringotomy tube(s) status; Z98.51 Tubal ligation status; Z98.41 Cataract extraction status, right eye; Z98.42 Cataract extraction status, left eye; Z79.899 Other long term (current) drug therapy
CPT/HCPCS: 36561; 71045; J1100; J1642; J1885; J2405; J2704; J3010; C1788